=== PATIENT | male | born 1960 | race African-American/Black ===

== ENCOUNTER 2016-11-30 16:40 | Outpatient (CLI) | payer OTHER ==
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
== END 2016-11-30 16:42 ==
LOC: RAD 16:40
PROVIDERS: ATTEND Physician Assistant
DX: M54.2 Cervicalgia (principal); V87.7XXA Person injured in collision between other specified motor vehicles (traffic), initial encounter; M54.9 Dorsalgia, unspecified; Y93.9 Activity, unspecified; Y99.9 Unspecified external cause status
CPT/HCPCS: 72040; 72072